=== PATIENT | female | born 1985 | race African-American/Black ===

== ENCOUNTER → 2016-07-24 | Outpatient (CLI) | payer MEDICAID ==
[~2016-07-24] MED LIST: ALBU0.08 NEB; ALBU6.7H INH; ANUC25SU RECTAL; BENA25TA3 PO; BLOOD PRESSURE1 M20; BLOOKIT; CLIN1CAP6 PO; ETON1IMP I-DERMAL; GUAI100S10 PO; GUAI100S7 PO; HYDR2.5%T RECTAL; IBUP-232 PO; METR1GEL VAGINAL; NEBUKIT5; NORE0.354 PO; OXYC1TAB63 PO; PRENTAB44 PO; PULM90IN INH; PYRI25TA2 PO; RANI1TAB5 PO; RANI1TAB7 PO; SENN1TAB PO; SERT25TA83 PO; TETA1INJ6 IM; TYLE325T PO; ZOFR4TAB3 SL
== END ==
LOC: HPND 08:23
PROVIDERS: ATTEND Family Medicine
DX: O99.210 Obesity complicating pregnancy, unspecified trimester (principal); E66.01 Morbid (severe) obesity due to excess calories; Z68.42 Body mass index [BMI] 45.0-49.9, adult; Z3A.00 Weeks of gestation of pregnancy not specified
CPT/HCPCS: 76816

== ENCOUNTER → 2016-08-21 | Outpatient (CLI) | payer MEDICAID | LOC: HPND 08:30 | PROVIDERS: ATTEND Family Medicine | DX: O99.210 Obesity complicating pregnancy, unspecified trimester (principal); E66.01 Morbid (severe) obesity due to excess calories; Z68.42 Body mass index [BMI] 45.0-49.9, adult | CPT/HCPCS: 76816 ==

== ENCOUNTER → 2016-09-16 | Outpatient (CLI) | payer MEDICAID ==
[~2016-09-16] MED LIST changes: -TETA1INJ6 IM
== END ==
LOC: HPND 10:06
PROVIDERS: ATTEND Family Medicine
DX: O99.213 Obesity complicating pregnancy, third trimester (principal); Z3A.31 31 weeks gestation of pregnancy; E66.01 Morbid (severe) obesity due to excess calories; Z68.42 Body mass index [BMI] 45.0-49.9, adult
CPT/HCPCS: 76816

== ENCOUNTER 2016-11-06 11:53 | Inpatient (IN) | payer MEDICAID ==
[~2016-11-06] VITALS: Ht 172.7 cm; Wt 130.6 kg
[~2016-11-06 11:53] MED LIST changes: -BENA25TA3 PO; -CLIN1CAP6 PO; -ETON1IMP I-DERMAL; -GUAI100S10 PO; -GUAI100S7 PO; -HYDR2.5%T RECTAL; -IBUP-232 PO; -METR1GEL VAGINAL; -NORE0.354 PO; -OXYC1TAB63 PO; -RANI1TAB5 PO; -SENN1TAB PO; -SERT25TA83 PO; -TYLE325T PO
[2016-11-09 10:31] VITALS: BP 130/84; PULSE 105
[2016-11-09] MEDS ORDERED: LACTATED RINGER'S 1000 ML INJ 1,000 ML IV ONE ×2 (10:53→14:11)
[2016-11-09] MEDS ORDERED: LACTATED RINGER'S 1000 ML INJ 1,000 ML IV SCH ×2 (11:23→18:00)
[2016-11-09 11:32] LABS: AUTOMATED NEUTROPHIL # 4.4 TH/MM3 (1.8-7.7); BASOPHIL % 0.2 % (0.0-2.0); EOSINOPHIL # 0.2 TH/MM3 (0-0.4); EOSINOPHIL % 2.8 % (0.0-4.0); HEMATOCRIT 35.5 % (35.0-46.0); HEMO FLAGS DIFF FINAL; LYMPH % 17.9 % (9.0-44.0); LYMPHOCYTE # 1.1 TH/MM3 (1.0-4.8); MEAN CELL VOLUME 81.5 FL (80.0-100.0); MEAN CORPUSCULAR HEMOGLOBIN 27.3 PG (27.0-34.0); MEAN CORPUSCULAR HGB CONC 33.4 % (32.0-36.0); MONO % 7.8 % (0.0-8.0); NEUT % 71.3 % (16.0-70.0); PLATELET COUNT 164 TH/MM3 (150-450); RED BLOOD COUNT 4.35 MIL/MM3 (4.00-5.30); RED CELL DISTRIBUTION WIDTH 14.5 % (11.6-17.2); WHITE BLOOD COUNT 6.2 TH/MM3 (4.0-11.0)
[2016-11-09 11:45] LABS: BLOOD, URINE NEG (NEG); COMMENT (UR) CULT NOT INDICATED; CULTURE IF INDICATED CULT NOT INDICATED; GLUCOSE,URINE NEG (NEG); KETONE, URINE NEG (NEG); MUCUS URINE FEW /lpf (OCC); NITRITE,URINE NEG (NEG); SQUAMOUS EPITHELIAL CELL URINE 7 /hpf (0-5); URINE COLOR YELLOW (YELLW/STRAW)
[2016-11-09] MEDS ORDERED: ceFAZolin 2 GM PREMIX 50 ML IV SCH (12:00)
--- NOTE | 2016-11-09 12:10 | HHI.HP ---
HPI Chief Complaint Scheduled Date Seen: November 09, 2016 Travel History International Travel<30 Days: No Contact w/Intl Traveler<30Days: No History of Present Illness HPI 31 year old female at 39 weeks GA (LMP 02/09/2016; [facility] ) admitted for scheduled repeat . She denies contractions, LOF, or vaginal bleeding. Endorses positive movement. PCP is Dr. Oneill who will perform with Dr. Singh. labs: B+ blood, negative antibody screen, RPR nonreactive, HIV and HBsAg negative, negative 3-hour GTT, GBS negative History Past Medical History Narrative Medical Morbid obesity Left greater trochanteric bursitis Asthma PCOS Obstetric History Obstetric History 2013 Past Surgical History Narrative Surgical Family History Narrative Family History Father: not known Mother: HTN Siblings: 1 older sister: lupus, fibromyalgia Social History Alcohol Use: No Tobacco Use: No Substance Abuse: No Allergies-Medications (Allergen,Severity, Reaction): Coded Allergies: Shrimp (Verified Allergy, Mild, vomiting, 11/03/16) Home Meds Active Scripts Hydrocortisone Acetate Supp (Anucort-Hc Supp)25 Mg Supp25 Mg RECTAL HS #15 SUPP Ref 0 Prov:Raisa Russo MD 11/03/16 Blood Pressure Monitoring (Blood Pressure Monitor)1 Kit Kit #1 Units Prov:Adam Oneill MD R2 10/07/16 Ondansetron Odt (Zofran Odt)4 Mg Tab4 Mg SL Q8HR PRN (Nausea/Vomiting) #7 TAB Ref 0 Prov:Adam Oneill MD R2 09/30/16 Pyridoxine 25 Mg Tab25 Mg PO TID #90 TAB Ref 0 Prov:Adam Oneill MD R2 09/30/16 Ranitidine (Ranitidine Maximum Strength)150 Mg Brp353 Mg PO BID #60 TAB Ref 0 Prov:Adam Oneill MD R2 09/30/16 Budesonide Powder Inh (Pulmicort Flexhaler)90 Mcg/Act Inhp90 Mcg INH DAILY@0600 #1 INHALER Ref 0 Prov:Adam Oneill MD R2 07/13/16 Albuterol 6.7 GM Inh (Proventil Hfa 6.7 GM Inh)90 Mcg/Act Aer2 Puff INH Q4HR PRN (SHORTNESS OF BREATH) #1 INHALER Ref 2 Prov:Adam Oneill MD R2 06/11/16 Reported Medications Multivit-Min W/Fe-FA ( and Iron)1 Tab Tab1 Tab PO DAILY 05/08/16 Albuterol Neb 2.5 Mg/3 Ml Neb2.5 Mg NEB Q4HR NEB PRN (SHORTNESS OF BREATH) #60 NEBULE Ref 0 05/08/16 Nebulizer Kit/Tubing/Mout 1 Kit Kit #1 KIT .ROUTE DIRECTED Ref 0 05/08/16 Blood Pressure Kit/Arm Cuff 1 Mis Mis #1 EA .ROUTE DIRECTED Ref 0 05/08/16 Discontinued Scripts Hydrocortisone Rectal (Anusol-Hc Rectal)2.5% Cream1 Applic RECTAL Q6H PRN ( ITCHING/INFLAMMATION) #30 GM Ref 0 Prov:Adam Oneill MD R2 10/17/16 Review of Systems Except as stated in HPI: all other systems reviewed are Neg Physical Exam Vital Signs Date Time Temp Pulse Resp B/P Pulse Ox O2 Delivery O2 Flow Rate FiO2 11/09/16 10:31 105 130/84 Narrative GENERAL: Obese female laying comfortably in bed. SKIN: Warm and dry. HEENT: Normocephalic and atraumatic. No scleral icterus. No injection or drainage. No nasal drainage noted. Mucous membranes pink. Airway patent. NECK: Supple, trachea midline. No JVD. CARDIOVASCULAR: Regular rate and rhythm without murmurs, gallops, or rubs. RESPIRATORY: Breath sounds equal bilaterally. No accessory muscle use. ABDOMEN/GI: Abdomen soft, non-tender, bowel sounds present, no rebound, no guarding FHT's: Category: 1 Baseline: 130 Reactive: yes Variability: moderate Decels: negative EXTREMITIES: No cyanosis or edema. BACK: Nontender without obvious deformity. No CVA tenderness. NEUROLOGICAL: Awake and alert. Motor and sensory grossly within normal limits. Normal speech. Data Data Vital Signs Reviewed: Yes Orders Admit To Inpatient (11/09/16 ) Code Status (11/09/16 10:53) Vital Signs (Adult) .ON ADMISSION (11/09/16 10:53) Activity Oob Ad Louisa (11/09/16 10:53) Heart (11/09/16 10:53) Urinary Catheter Management MEHRDAD.Q8H (11/09/16 10:53) ^ Preps (11/09/16 10:53) Scd / Michael / Foot Pump MEHRDAD.QSHIFT (11/09/16 10:53) ^ Ultrasound For Locatio (11/09/16 10:53) Diet Npo (11/09/16 Lunch) Lactated Ringer's 1000 Ml Inj (Lr 1000 M (11/09/16 10:53) Lactated Ringer's 1000 Ml Inj (Lr 1000 M (11/09/16 11:23) Cefazolin 2 Gm Premix (Ancef 2 Gm Premix (11/09/16 12:00) Citric Acid-Sodium Citrate Liq (Bicitra (11/09/16 12:30) Type And Screen (11/09/16 10:53) Complete Blood Count With Diff (11/09/16 10:53) Urinalysis - C+S If Indicated (11/09/16 10:53) Inpatient Certification (11/09/16 ) Specimen To Be Collected PRN (11/09/16 10:53) Labs Laboratory Tests Test 11/09/16 10:40 White Blood Count 6.2 Red Blood Count 4.35 Hemoglobin 11.9 Hematocrit 35.5 Mean Corpuscular Volume 81.5 Mean Corpuscular Hemoglobin 27.3 Mean Corpuscular Hemoglobin 33.4 Concent Red Cell Distribution Width 14.5 Platelet Count 164 Mean Platelet Volume 10.5 Neutrophils (%) (Auto) 71.3 Lymphocytes (%) (Auto) 17.9 Monocytes (%) (Auto) 7.8 Eosinophils (%) (Auto) 2.8 Basophils (%) (Auto) 0.2 Neutrophils # (Auto) 4.4 Lymphocytes # (Auto) 1.1 Monocytes # (Auto) 0.5 Eosinophils # (Auto) 0.2 Basophils # (Auto) 0.0 CBC Comment DIFF FINAL Differential Comment Urine Color YELLOW Urine Turbidity HAZY Urine pH 7.0 Urine Specific Ryder 1.021 Urine Protein TRACE Urine Glucose (UA) NEG Urine Ketones NEG Urine Occult Blood NEG Urine Nitrite NEG Urine Bilirubin NEG Urine Urobilinogen LESS THAN 2.0 Urine Leukocyte Esterase NEG Urine RBC LESS THAN 1 Urine WBC 1 Urine Squamous Epithelial 7 Cells Urine Mucus FEW Microscopic Urinalysis Comment CULT NOT INDICATED Assessment/Plan Assessment and Plan 31 year old female at 38/6 weeks GA admitted for scheduled repeat . - H&H 11.9/35.5 - Urine negative - GBS negative - CAT1 FHT Plan: - Admit to L&D for repeat - Vitals Q4H - NPO - Type and screen - Routine pre-op orders including 2 g Ancef - Monitor CBC Magalie Wood MD November 09, 2016 12:10
[2016-11-09] MEDS ORDERED: ONDANSETRON HCL 4 MG/2 ML VIAL ONE (12:13)
[2016-11-09] MEDS ORDERED: MORPHINE SULFATE PF 5 MG/10 ML VIAL ONE (12:13)
[2016-11-09] MEDS ORDERED: OXYTOCIN 10 UNIT/ML AMP ONE (12:13)
--- NOTE | 2016-11-09 12:22 | PD.LABORPN ---
Subjective Subjective Patient seen this afternoon prior to . Patient states that she is feeling well. Endorses good movement. Discussed with patient and at bedside, no questions or concerns. Objective Vital Signs Vital Signs Date Time Temp Pulse Resp B/P Pulse Ox O2 Delivery O2 Flow Rate FiO2 11/09/16 10:31 105 130/84 Assessment/Plan Assessment and Plan Patient will be having repeat with Dr. Singh -Dr. Oneill and Dr. Russo will be assisting with the -Patient feeling well. -No questions or concerns -Anticipate normal delivery Raisa Russo MD November 09, 2016 12:22 Raisa Russo MD November 09, 2016 12:22
[2016-11-09] MEDS ORDERED: CITRIC ACID-SODIUM CITRATE LIQ 30 ML UDC PO SCH (12:30)
[2016-11-09] MEDS ORDERED: EPIDURAL-NO SYSTEMIC NARCOTICS PRN (12:30)
[2016-11-09] MEDS ORDERED: EPIDURAL-NALOXONE HCL 0.4 MG/ML AMP IV PRN (12:30)
[2016-11-09] MEDS ORDERED: EPIDURAL-DIPHENHYDRAMINE HCL 50 MG/ML VIAL IV PUSH PRN (12:30)
[2016-11-09] MEDS ORDERED: EPIDURAL-DIPHENHYDRAMINE HCL 50 MG CAP PO PRN (12:30)
[2016-11-09] MEDS ORDERED: EPIDURAL-DO NOT ADMINISTER ANTICOAGULANTS PRN (12:30)
--- NOTE | 2016-11-09 13:41 | PD.OB.DELI ---
Procedure Note Section Procedure Pre Op Diagnosis: (1) 39 weeks gestation of Post Op Diagnosis: (1) 39 weeks gestation of Performed by Willi Singh Procedure: Repeat Low Transverse Sec Informed consent obtained: For anesthesia, For procedure Confirmed correct: Procedure, Time-out taken Anesthesia: Spinal Urinary catheter: Inserted using sterile technique, To dependent drainage Sterile preparation: Duraprep Position: Supine with wedge to left side Operative Features Skin Incision: Pfannenstiel Uterine Incision: Low transverse w/knife / blunt ext Presentation: Occiput anterior Delivery of : Uneventful : Single One Minute : 9 Five Minute : 9 Status of infant: Viable Placenta delivered: Intact Estimated blood loss: 500 Procedure tolerated: Well Maternal Condition: Stable Condition: Stable Willi Singh MD November 09, 2016 13:41
[2016-11-09] MEDS ORDERED: SODIUM CHLORIDE 0.9% FLUSH 10 ML FLUSH IV FLUSH PRN ×2 (13:45)
[2016-11-09] MEDS ORDERED: ALUMINUM/MAGNESIUM/SIMETH 30 ML CUP PO PRN (14:00)
[2016-11-09] MEDS ORDERED: ACETAMINOPHEN 325 MG TAB PO PRN (14:00)
[2016-11-09] MEDS ORDERED: ZOLPIDEM TARTRATE 5 MG TAB PO PRN (14:00)
[2016-11-09] MEDS ORDERED: oxyCODONE/ACETAMINOPHEN 5 MG/325 MG TAB PO PRN ×2 (14:00)
[2016-11-09] MEDS ORDERED: SIMETHICONE 80 MG CHEWABLE TAB PO PRN (14:00)
[2016-11-09] MEDS ORDERED: ONDANSETRON ODT 4 MG TAB PO PRN (14:00)
[2016-11-09] MEDS ORDERED: BENZOCAINE 20% TOPICAL SPRAY 60 ML CAN TOPICAL PRN (14:00)
[2016-11-09] MEDS ORDERED: IBUPROFEN 600 MG TAB PO PRN (14:00)
[2016-11-09] MEDS ORDERED: OXYTOCIN 30 UNITS-500ML PREMIX 500 ML IV ONE (14:00)
[2016-11-09] MEDS ORDERED: KETOROLAC TROMETHAMINE 60 MG/2 ML (IM) VIAL IM PRN (14:00)
[2016-11-09] MEDS ORDERED: WITCH HAZEL 50%/GLYCERIN 12.5% 40 PAD JAR TOPICAL PRN (14:00)
[2016-11-09] MEDS ORDERED: LIDOCAINE 2%/EPINEPHrine PF 1:200,000 20ML SDV I-DERMAL ONE (14:11)
[2016-11-09] MEDS ORDERED: SODIUM BICARB 8.4% (PED) INJ 10 MEQ/10 ML SYR IV ONE (14:11)
[2016-11-09] MEDS ORDERED: OXYTOCIN 30 UNITS-500ML PREMIX 500 ML ONE (14:35)
[2016-11-09 15:15] VITALS: BP 104/59; PULSE 78; RESP 18; TEMP 98
[2016-11-09] MEDS ORDERED: MEASLES, MUMPS, RUBELLA VACCINE 0.5 ML VIAL SQ ONE (16:00)
[2016-11-09] MEDS ORDERED: DIPHTH/TETANUS/ACEL PERTUSSIS (BOOSTER) 0.5 ML VIAL/PFS IM ONE (16:00)
[2016-11-09 20:00] VITALS: BP 124/74; PULSE 88; RESP 18; TEMP 97.8; O2SAT 97
[2016-11-09] MEDS ORDERED: SODIUM CHLORIDE 0.9% FLUSH 10 ML FLUSH IV FLUSH SCH ×2 (21:00)
[2016-11-09] MEDS ORDERED: OXYTOCIN 30 UNITS-500ML PREMIX 500 ML IV PRN (23:45)
[2016-11-10] VITALS: BP 125/70; PULSE 78; RESP 18; TEMP 98.6; O2SAT 97
[2016-11-10 04:50] VITALS: BP 111/80; PULSE 86; RESP 20; TEMP 97.4; O2SAT 99
[2016-11-10] MEDS: IBUPROFEN 600 MG TAB PO PRN ×3 (05:25→20:09)
[2016-11-10] MEDS: oxyCODONE/ACETAMINOPHEN 5 MG/325 MG TAB PO PRN ×3 (05:26→20:09)
[2016-11-10 08:00] VITALS: BP 122/79; PULSE 88; RESP 20; TEMP 98.4
--- NOTE | 2016-11-10 09:04 | HHI.OB ---
Subjective Post Operative Day: 1 Remarks Postoperative day number 1. AFVSS overnight. Pain was 9/10 this am, now 5/10 after taking a Lortab early this am. Incision not draining. Decreased lochia. Denies heavy clots. Denies dysuria. Tried to urinate on own last night but had difficulty and a straight cath was placed. Has not tried urinating again since then. No breast tenderness. She is feeding the baby via breast and bottle. Reports good latch but having trouble with enough milk being expressed. Is going to be pumping today. Appetite good. No nausea or vomiting. + flatus. No bowel movement yet. Ambulating well. Denies calf pain, shortness of breath , fever or chills. Complains of itching all over her body and attributes this to the morphine given yesterday and the Lortab pain medication. Does not want to take Benadryl as she says it will make her sleepy and she wants to be awake to take care of baby. Otherwise, she is doing well this morning and has no other complaints. (Raisa Russo MD) Objective Vitals/I&O Vital Signs Date Time Temp Pulse Resp B/P Pulse Ox O2 Delivery O2 Flow Rate FiO2 11/10/16 08:00 98.4 88 20 122/79 11/10/16 04:50 99 11/10/16 04:50 97.4 86 20 111/80 11/10/16 00:00 98.6 78 18 97 11/10/16 00:00 125/70 11/09/16 20:00 97.8 97 11/09/16 20:00 88 18 124/74 11/09/16 15:15 98.0 78 18 104/59 11/09/16 10:31 105 130/84 (Raisa Russo MD) Result Diagram: 11/09/16 1040 Objective Remarks GENERAL: Well-nourished, well-developed patient. SKIN: no skin rashes noted. She is itching all over the body. CARDIOVASCULAR: Regular rate and rhythm without murmurs, gallops, or rubs. RESPIRATORY: Breath sounds equal bilaterally. No accessory muscle use. ABDOMEN/GI: Abdomen soft, non-tender, bowel sounds present. Incision: Clean, dry and intact. Fundus: Firm, non-tender at umbilicus. GENITOURINARY: Light to moderate bleeding. EXTREMITIES: No cyanosis or edema, non-tender, without signs of DVT. Negative Trina's sign Medications and IVs Current Medications Medications (Trade) Dose Ordered Sig/Wilian Route Start Time Stop Time Status Last Admin (NS Flush) 2 ml BID IV FLUSH 11/09/16 21:00 (NS Flush) 2 ml UNSCH PRN IV FLUSH 11/09/16 13:45 (Tylenol) 650 mg Q4H PRN PO 11/09/16 14:00 (Motrin) 600 mg Q6H PRN PO 11/09/16 15:00 11/10/16 05:25 (Percocet 5-325 Mg) 1 tab Q4H PRN PO 11/09/16 14:00 11/10/16 05:26 (Percocet 5-325 Mg) 2 tab Q4H PRN PO 11/09/16 14:00 (Americaine 20% Top Spr) 1 spray Q4H PRN TOPICAL 11/09/16 14:00 (Tucks Pads) 1 applic QID PRN TOPICAL 11/09/16 14:00 (Elodia-Colace) 2 tab Q12H PRN PO 11/09/16 14:00 (Ambien) 5 mg HS PRN PO 11/09/16 14:00 (Mag-Al Plus Susp Liq) 15 ml Q8H PRN PO 11/09/16 14:00 (Zofran Odt) 4 mg Q6H PRN PO 11/09/16 14:00 Miscellaneous Information NO SYSTEMIC NARCOTICS TO BE GIVEN FO... UNSCH PRN .XX 11/09/16 12:30 11/10/16 12:29 (Narcan Inj) 0.4 mg UNSCH PRN IV 11/09/16 12:30 11/10/16 12:29 (Benadryl Inj) 25 mg Q6H PRN IV PUSH 11/09/16 12:30 11/10/16 12:29 (Benadryl) 50 mg Q6H PRN PO 11/09/16 12:30 11/10/16 12:29 Miscellaneous Information ALL NURSING DEPARTMENTS UNSCH PRN .XX 11/09/16 12:30 11/10/16 12:29 (Raisa Russo MD) Objective Remarks Oropharynx with moist pink mucosa, uvula midline, airway patent Agree no respiratory distress (Joselyn Call MD) Assessment/Plan Assessment and Plan 31 y/o female who is POD# 1 s/p repeat CXN. -Continue routine care. -Percocet and Motrin PRN pain. -Zyrtec x1 dose now -Hydroxyzine 25 mg PO q8hr PRN itching -Elodia-Colace as needed, advised her to take this with pain medication to avoid constipation. -Denies hemorrhoids, states after using Anucort suppository as outpatient that these resolved. -Anticipate patient will void on own today, continue to monitor -Advised plenty of hydration to help improve breast milk supply -Encouraged OOB. Advised pelvic rest for 6 wks. Will need a f/u appt. in 1 wk for incision check. -Re: ctrl, considering options -D/c in 1-[address] Call (Raisa Russo MD) Attending Attestation Patient seen and examined. Addressed the following additional concerns: Urinary retention, now s/p straight cath, awaiting pt reattempt at spontaneous void today. Case reviewed and discussed with the resident team. Agree with plan of care as discussed with me and documented in the resident note. (Joselyn Call MD) Raisa Russo MD November 10, 2016 09:04 Joselyn Call MD November 10, 2016 13:00
[2016-11-10] MEDS ORDERED: hydrOXYzine HCL 25 MG TAB PO PRN (09:15)
[2016-11-10] MEDS ORDERED: CETIRIZINE HCL 10 MG TAB PO ONE (10:00)
--- NOTE | 2016-11-10 10:16 | HHI.OB ---
Subjective Post Day: 1 Remarks doing well pod #1 Objective Vitals/I&O Vital Signs Date Time Temp Pulse Resp B/P Pulse Ox O2 Delivery O2 Flow Rate FiO2 11/10/16 08:00 98.4 88 20 122/79 11/10/16 04:50 99 11/10/16 04:50 97.4 86 20 111/80 11/10/16 00:00 98.6 78 18 97 11/10/16 00:00 125/70 11/09/16 20:00 97.8 97 11/09/16 20:00 88 18 124/74 11/09/16 15:15 98.0 78 18 104/59 11/09/16 10:31 105 130/84 Objective Remarks GENERAL: Well-nourished, well-developed patient. ABDOMEN/GI: Abdomen soft, non-tender. Fundus: Firm, non-tender at umbilicus. GENITOURINARY: Light to moderate bleeding. EXTREMITIES: No cyanosis or edema, non-tender, without signs of DVT. Medications and IVs Current Medications Medications (Trade) Dose Ordered Sig/Wilian Route Start Time Stop Time Status Last Admin (NS Flush) 2 ml BID IV FLUSH 11/09/16 21:00 (NS Flush) 2 ml UNSCH PRN IV FLUSH 11/09/16 13:45 (Tylenol) 650 mg Q4H PRN PO 11/09/16 14:00 (Motrin) 600 mg Q6H PRN PO 11/09/16 15:00 11/10/16 05:25 (Percocet 5-325 Mg) 1 tab Q4H PRN PO 11/09/16 14:00 11/10/16 05:26 (Percocet 5-325 Mg) 2 tab Q4H PRN PO 11/09/16 14:00 (Americaine 20% Top Spr) 1 spray Q4H PRN TOPICAL 11/09/16 14:00 (Tucks Pads) 1 applic QID PRN TOPICAL 11/09/16 14:00 (Elodia-Colace) 2 tab Q12H PRN PO 11/09/16 14:00 (Ambien) 5 mg HS PRN PO 11/09/16 14:00 (Mag-Al Plus Susp Liq) 15 ml Q8H PRN PO 11/09/16 14:00 (Zofran Odt) 4 mg Q6H PRN PO 11/09/16 14:00 Miscellaneous Information NO SYSTEMIC NARCOTICS TO BE GIVEN FO... UNSCH PRN .XX 11/09/16 12:30 11/10/16 12:29 (Narcan Inj) 0.4 mg UNSCH PRN IV 11/09/16 12:30 11/10/16 12:29 (Benadryl Inj) 25 mg Q6H PRN IV PUSH 11/09/16 12:30 11/10/16 12:29 (Benadryl) 50 mg Q6H PRN PO 11/09/16 12:30 11/10/16 12:29 Miscellaneous Information ALL NURSING DEPARTMENTS UNSCH PRN .XX 11/09/16 12:30 11/10/16 12:29 (Atarax) 25 mg Q8H PRN PO 11/10/16 09:15 Assessment/Plan Assessment and Plan 31 y/o female who is POD# 1 s/p repeat CXN. -Continue routine care. -Percocet and Motrin PRN pain. -Zyrtec x1 dose now -Hydroxyzine 25 mg PO q8hr PRN itching -Elodia-Colace as needed, advised her to take this with pain medication to avoid constipation. -Denies hemorrhoids, states after using Anucort suppository as outpatient that these resolved. -Anticipate patient will void on own today, continue to monitor -Advised plenty of hydration to help improve breast milk supply -Encouraged OOB. Advised pelvic rest for 6 wks. Will need a f/u appt. in 1 wk for incision check. -Re: ctrl, considering options -D/c in 1-[address] Jakub Singh,Willi Gilman MD November 10, 2016 10:16
[2016-11-10] MEDS ORDERED: MEASLES, MUMPS, RUBELLA VACCINE 0.5 ML VIAL SQ ONE (16:00)
[2016-11-10] MEDS ORDERED: DIPHTH/TETANUS/ACEL PERTUSSIS (BOOSTER) 0.5 ML VIAL/PFS IM ONE (16:00)
[2016-11-10] MEDS: DOCUSATE SODIUM 50 MG/SENNA 8.6 MG TAB PO PRN (17:07)
[2016-11-10 20:00] VITALS: BP 114/69; PULSE 82; RESP 18; TEMP 98.5
--- NOTE | 2016-11-11 07:56 | MP ---
cc: ELIZA SINGH M.D. DATE OF SURGERY 11/09/2016 PROCEDURE Repeat low transverse section PREOPERATIVE DIAGNOSIS Desires elective repeat POSTOPERATIVE DIAGNOSIS Desires elective repeat SURGEON Dr. Eliza Singh ESTIMATED BLOOD LOSS 500 cc's ANESTHESIA Epidural anesthesia, Dr. Waldrop SOCIAL SCIENCE MANAGER Eugene Hensley, PGY-2 FINDINGS A live infant, 's 9 and 9, 9 pound . PROCEDURE IN DETAIL After informed consent, the patient taken to the operating room where she was placed under epidural anesthesia and placed in the supine position left lateral tilt. The abdomen, perineum and vagina were prepped and draped in the normal sterile fashion. Time-out was taken for the procedure and the patient. Once adequate anesthesia was assured and the patient was prepped and draped and her Gallegos was draining well, a Pfannenstiel skin incision was carried sharply through the skin to the fascia. The fascia was nicked in the midline. The incision was extended laterally using Duncan scissors. The rectus muscles dissected off the fascia with sharp dissection secondary to scar tissue. The rectus muscle had to be entered sharply. Once we entered the rectus muscle, we in the midline. The incision extended upward and downward using scissors. A bladder blade was placed in the abdomen. A bladder flap was created. A low-transverse uterine incision was then made, carried sharply into the uterine cavity. Clear fluid was noted. The incision was extended laterally using blunt traction. A hand was placed in the uterus. The 's head guided through the incision using fundal pressure. The 's head readily delivered. The nose and mouth were suctioned well. The cord was clamped and cut after 45 seconds. The infant was doing very well. The was handed to pediatrics in attendance. Cord blood was collected. The placenta was delivered manually. The uterus exteriorized, wiped free from all remaining products of conception. The uterine incision was then closed with a running locking stitch of chromic suture. Good hemostasis was achieved. The right uterine artery had be tied off for hemostasis. The uterus was placed back in the abdomen noted to be hemostatic. The perineum was closed with Vicryl suture. The fascia was closed with a Vicryl suture and skin was closed with a subcuticular stitches. Each layer was noted to be hemostatic prior to closure. The patient tolerated the procedure well. MD MACARIO Zavala/INESSA /1:49 PM /7:44 AM
[2016-11-11 08:00] VITALS: BP 120/78; PULSE 68; RESP 18; TEMP 98.4
[2016-11-11] MEDS: DOCUSATE SODIUM 50 MG/SENNA 8.6 MG TAB PO PRN (08:14)
[2016-11-11] MEDS: IBUPROFEN 600 MG TAB PO PRN (08:15)
[2016-11-11] MEDS: oxyCODONE/ACETAMINOPHEN 5 MG/325 MG TAB PO PRN ×2 (08:15→12:12)
--- NOTE | 2016-11-11 08:45 | HHI.OB ---
Subjective Post Operative Day: 2 Remarks Ms. Meek is a 4-year-old who is POD 2 from repeat CS 11/09 at 1300. AFVSS overnight. Patient ambulating well. Patient reports occasional pain at her incision site states that she is overall doing well in terms of her pain. Patient reports decreased vaginal bleeding. Patient breathing well, urinating well, and without calf pain. Patient breast-feeding and bottle feeding; no complications reported. Patient does not report the itching she reported yesterday. (Adam Oneill MD R2) Objective Vitals/I&O Vital Signs Date Time Temp Pulse Resp B/P Pulse Ox O2 Delivery O2 Flow Rate FiO2 11/10/16 20:00 82 18 114/69 11/10/16 20:00 98.5 (Adam Oneill MD R2) Result Diagram: 11/09/16 1040 Objective Remarks GENERAL: Well-nourished, well-developed patient. ABDOMEN/GI: Abdomen soft, non-tender. Fundus: Firm, non-tender at umbilicus. Incision site looks clean and dry without surrounding erythema. GENITOURINARY: Light to moderate bleeding. EXTREMITIES: No cyanosis or edema, non-tender, without signs of DVT. Medications and IVs Current Medications Medications (Trade) Dose Ordered Sig/Wilian Route Start Time Stop Time Status Last Admin (NS Flush) 2 ml BID IV FLUSH 11/09/16 21:00 (NS Flush) 2 ml UNSCH PRN IV FLUSH 11/09/16 13:45 (Tylenol) 650 mg Q4H PRN PO 11/09/16 14:00 (Motrin) 600 mg Q6H PRN PO 11/09/16 15:00 11/11/16 08:15 (Percocet 5-325 Mg) 1 tab Q4H PRN PO 11/09/16 14:00 11/10/16 20:09 (Percocet 5-325 Mg) 2 tab Q4H PRN PO 11/09/16 14:00 11/11/16 08:15 (Americaine 20% Top Spr) 1 spray Q4H PRN TOPICAL 11/09/16 14:00 (Tucks Pads) 1 applic QID PRN TOPICAL 11/09/16 14:00 (Elodia-Colace) 2 tab Q12H PRN PO 11/09/16 14:00 11/11/16 08:14 (Ambien) 5 mg HS PRN PO 11/09/16 14:00 (Mag-Al Plus Susp Liq) 15 ml Q8H PRN PO 11/09/16 14:00 (Zofran Odt) 4 mg Q6H PRN PO 11/09/16 14:00 (Atarax) 25 mg Q8H PRN PO 11/10/16 09:15 (Adam Oneill MD R2) Assessment/Plan Assessment and Plan 31 y/o female who is POD# 2 s/p repeat CXN. -Continue routine care. -Percocet and Motrin PRN pain. -Elodia-Colace as needed, advised her to take this with pain medication to avoid constipation. -Continue to monitor VS, vaginal bleeding -Encouraged OOB. Advised pelvic rest for 6 wks. Will need a f/u appt. in 1 wk for incision check. -Hydroxyzine PRN for itching (Adam Oneill MD R2) Attending Attestation The exam, history, and the medical decision-making described in the above note were completed with the assistance of the resident provider. I reviewed and agree with the findings presented. I attest that I had a [id number] encounter with the patient on the same day, and personally performed and documented my assessment and findings in the medical record. (Iain Goldstein MD) Adam Oneill MD R2 November 11, 2016 08:45 Iain Goldstein MD November 11, 2016 09:00
--- NOTE | 2016-11-11 08:51 | HHI.OB ---
Subjective Post Day: 2 Remarks doing well Objective Vitals/I&O Vital Signs Date Time Temp Pulse Resp B/P Pulse Ox O2 Delivery O2 Flow Rate FiO2 11/10/16 20:00 82 18 114/69 11/10/16 20:00 98.5 Objective Remarks GENERAL: Well-nourished, well-developed patient. ABDOMEN/GI: Abdomen soft, non-tender. Fundus: Firm, non-tender at umbilicus. GENITOURINARY: Light to moderate bleeding. EXTREMITIES: No cyanosis or edema, non-tender, without signs of DVT. Medications and IVs Current Medications Medications (Trade) Dose Ordered Sig/Wilian Route Start Time Stop Time Status Last Admin (NS Flush) 2 ml BID IV FLUSH 11/09/16 21:00 (NS Flush) 2 ml UNSCH PRN IV FLUSH 11/09/16 13:45 (Tylenol) 650 mg Q4H PRN PO 11/09/16 14:00 (Motrin) 600 mg Q6H PRN PO 11/09/16 15:00 11/11/16 08:15 (Percocet 5-325 Mg) 1 tab Q4H PRN PO 11/09/16 14:00 11/10/16 20:09 (Percocet 5-325 Mg) 2 tab Q4H PRN PO 11/09/16 14:00 11/11/16 08:15 (Americaine 20% Top Spr) 1 spray Q4H PRN TOPICAL 11/09/16 14:00 (Tucks Pads) 1 applic QID PRN TOPICAL 11/09/16 14:00 (Elodia-Colace) 2 tab Q12H PRN PO 11/09/16 14:00 11/11/16 08:14 (Ambien) 5 mg HS PRN PO 11/09/16 14:00 (Mag-Al Plus Susp Liq) 15 ml Q8H PRN PO 11/09/16 14:00 (Zofran Odt) 4 mg Q6H PRN PO 11/09/16 14:00 (Atarax) 25 mg Q8H PRN PO 11/10/16 09:15 Assessment/Plan Assessment and Plan 31 y/o female who is POD# 2 s/p repeat CXN. -Continue routine care. -Percocet and Motrin PRN pain. -Elodia-Colace as needed, advised her to take this with pain medication to avoid constipation. -Continue to monitor VS, vaginal bleeding -Encouraged OOB. Advised pelvic rest for 6 wks. Will need a f/u appt. in 1 wk for incision check. -Hydroxyzine PRN for itching Discharge Planning possible [facility] Willi Singh MD November 11, 2016 08:51
[2016-11-11] MEDS ORDERED: CETIRIZINE HCL 10 MG TAB PO PRN (09:00)
--- NOTE | 2016-11-11 13:50 | HHI.DCPOC ---
Discharge Care Plan Diagnosis: (1) care following delivery Report Symptoms to Your Doctor -Temperate above 100.5 degrees -Redness, of incision or excessive or foul smelling drainage -Unusual pain or calf pain -Increased vaginal bleeding -Painful or difficulty urinating -Feelings of extreme sadness or anxiety after 2 weeks Goals to Promote Your Health * To prevent worsening of your condition and complications * To maintain your health at the optimal level Directions to Meet Your Goals Take your medications as prescribed Follow your dietary instruction Follow activity as directed Ensure plenty of rest for recovery Drink fluids for hydration Keep your appointments as scheduled Take your immunizations and boosters as scheduled If your symptoms worsen call your PCP, if no PCP go to Urgent Care Center or Emergency Room Smoking is Dangerous to Your Health. Avoid second hand smoke Call the 24-hour crisis hotline for domestic abuse at Adam Oneill MD R2 November 11, 2016 13:50
[2016-11-11] MEDS ORDERED: SENN1TAB PO (13:52)
[2016-11-11] MEDS ORDERED: OXYC1TAB63 PO (13:52)
[2016-11-11] MEDS ORDERED: IBUP-232 PO (13:52)
[2016-11-19] MEDS ORDERED: IBUP-232 PO (10:45)
[2016-11-19] MEDS ORDERED: OXYC1TAB63 PO (10:45)
[2016-11-19] MEDS ORDERED: CLIN1CAP6 PO (11:02)
[2016-11-25] MEDS ORDERED: CLIN1CAP6 PO (11:25)
[2016-11-25] MEDS ORDERED: TYLE325T PO (11:25)
[2016-11-25] MEDS ORDERED: IBUP-232 PO (11:25)
[2016-12-15] MEDS ORDERED: NORE0.354 PO (17:26)
[2016-12-15] MEDS ORDERED: METR1GEL VAGINAL (17:26)
[2016-12-15] MEDS ORDERED: SERT25TA83 PO (17:26)
[2016-12-15] MEDS ORDERED: ETON1IMP I-DERMAL (17:26)
[2016-12-28] MEDS ORDERED: IBUP-232 PO (07:07)
[2017-01-01] MEDS ORDERED: CLIN1CAP6 PO (15:16)
== END 2016-11-11 14:50 | disposition home or self-care (01) | DRG 765 ==
LOC: H2EB 11-09 09:51 → H1EA 11-09 15:06
PROVIDERS: ADMIT Obstetrics & Gynecology; ATTEND Obstetrics & Gynecology
PROC: 10D00Z1 Extraction of Products of Conception, Low, Open Approach (ICD-10-PCS; principal; 2016-11-09)
DX: O34.211 Maternal care for low transverse scar from previous cesarean delivery (principal); Z68.41 Body mass index [BMI] 40.0-44.9, adult; J45.909 Unspecified asthma, uncomplicated; Z3A.39 39 weeks gestation of pregnancy; Z37.0 Single live birth; O99.52 Diseases of the respiratory system complicating childbirth; O99.214 Obesity complicating childbirth; E66.01 Morbid (severe) obesity due to excess calories
CPT/HCPCS: 59025; 81001; 85025; 86850; 86900; 86901; J0690; J2274; J2405; J2590; J3010; J7120